=== PATIENT | male | born 1955 | race Caucasian/White ===

== ENCOUNTER 2019-03-10 07:56 | Day surgery (SDC) | payer MEDICAID ==
[~2019-03-10] VITALS: Ht 172.7 cm; Wt 87.6 kg
[2019-03-10] MEDS ORDERED: normal saline 1000ml 1,000 ML IV PRN (08:20)
[2019-03-10] MEDS ORDERED: LIDOcaine 1%/PF 5ML 10 MG/ML VIAL SQ ONE (08:30)
[2019-03-10] MEDS ORDERED: LIDOcaine 1% (10mg/ml) 2ml vial SQ ONE (08:30)
[2019-03-10] MEDS ORDERED: AMLO5TAB16 PO (08:52)
[2019-03-10] MEDS ORDERED: PANT20TA3 PO (08:52)
[2019-03-10] MEDS ORDERED: VITA-268 PO (08:52)
[2019-03-10] MEDS ORDERED: VIT1TABL50 PO (08:52)
[2019-03-10] MEDS ORDERED: ALB0.5UD INH (08:52)
[2019-03-10] MEDS ORDERED: CHOL200026 PO (08:52)
[2019-03-10] MEDS ORDERED: LABE100T5 PO (08:52)
[2019-03-10] MEDS ORDERED: LOVA40TA2 PO (08:52)
[2019-03-10 08:53] VITALS: BP 138/86
[2019-03-10] MEDS ORDERED: LIDOcaine 1% (10mg/ml) 2ml vial ONE (09:28)
[2019-03-10 09:30] VITALS: BP 138/96
[2019-03-10 09:45] VITALS: BP 138/88
== END 2019-03-10 10:11 | disposition home or self-care (01) ==
LOC: SSTAY O 07:56
PROVIDERS: ATTEND Radiology Diagnostic Radiology
DX: Z49.01 Encounter for fitting and adjustment of extracorporeal dialysis catheter (principal); N18.9 Chronic kidney disease, unspecified
CPT/HCPCS: 36589; J2001